=== PATIENT | female | born 1975 | race Caucasian/White ===

== ENCOUNTER 2016-06-25 09:52 | Outpatient (CLI) | payer OTHER ==
--- NOTE | 2016-06-28 14:38 | DIAGNOSTIC IMAGING REPORT ---
PROCEDURE: MG BILATERAL SCREENING W/CAD INDICATION: SCREENING TECHNIQUE: Bilateral CC and MLO digital views. COMPARISON: Baseline FINDINGS: Computer-aided detection applied. Moderately dense. 7 mm right upper outer quadrant nodule with central radiolucency, probable intramammary lymph node. No pleomorphic microcalcifications. Prominent left axillary lymph nodes. IMPRESSION: 1. 7 mm right upper outer quadrant nodule, probably intramammary lymph node. Recommend right breast ultrasound 2. Prominent left axillary lymph nodes. These are likely inflammatory but cannot exclude neoplastic changes. Correlate clinically. RESULT CODE: 0- Incomplete; needs additional evaluation. A. A negative report should not delay biopsy if a dominant or clinically suspicious mass is present. 10-15% of cancers are not identified by x-ray. B. A negative report may reinforce clinical impression. C. Adenosis and dense breasts may obscure an underlying neoplasm. D. False positive reports average 6-10%. E.. A yearly screening mammogram is recommended. A reminder letter will be scheduled.
== END 2016-06-25 23:00 ==
LOC: MAM SRH 09:52
DX: Z12.31 Encounter for screening mammogram for malignant neoplasm of breast (principal)

== ENCOUNTER 2016-07-10 10:46 | Outpatient (CLI) | payer OTHER ==
--- NOTE | 2016-07-10 12:09 | DIAGNOSTIC IMAGING REPORT ---
PROCEDURE: US LTD BREAST ULTRASOUND - RT INDICATION: EVALUATE NODULE SEEN ON SCREENING TECHNIQUE: High resolution cardenas scale and color Doppler sonographic images of bilateral breasts. COMPARISON: Comparison is made to baseline screening mammogram on 06/25/2016. FINDINGS: Right: Confirmation of four right axillary and upper outer quadrant normal intramammary lymph nodes (0.7 - 1.7 cm) with normal internal architecture. No evidence of underlying abnormality. Left: Confirmation of two normal axillary lymph nodes (1.3 - 2.6 cm) with normal internal architecture. No evidence of underlying abnormality. IMPRESSION: 1. Confirmation of normal bilateral breast and axillary lymph nodes. No evidence of underlying abnormality. 2. Resume routine screening mammogram schedule (May 2017). 3. Findings discussed with the patient. RESULT CODE: 2- Benign finding(s). A. A negative report should not delay biopsy if a dominant or clinically suspicious mass is present. 10-15% of cancers are not identified by x-ray. B. A negative report may reinforce clinical impression. C. Adenosis and dense breasts may obscure an underlying neoplasm. D. False positive reports average 6-10%. E.. A yearly screening mammogram is recommended. A reminder letter will be scheduled.
== END 2016-07-10 23:00 ==
LOC: US SRH 10:46
DX: N63 Unspecified lump in breast (principal)